=== PATIENT | female | born 1990 | race Asian ===

== ENCOUNTER 2020-07-02 22:53 | Emergency (ER) | payer BC ==
[~2020-07-02] VITALS: Ht 162.6 cm; Wt 96.2 kg
[2020-07-03 00:52] VITALS: BP 142/86; TEMP 98.7
== END 2020-07-03 00:52 | disposition home or self-care (01) ==
LOC: ED 22:53
DX: S86.812A Strain of other muscle(s) and tendon(s) at lower leg level, left leg, initial encounter (principal); X58.XXXA Exposure to other specified factors, initial encounter; Y93.02 Activity, running; Y92.89 Other specified places as the place of occurrence of the external cause
CPT/HCPCS: 99283